=== PATIENT | male | born 1980 | race African-American/Black ===

== ENCOUNTER 2021-05-12 00:33 | Emergency (ER) | payer SELFPAY ==
[2021-05-12 00:48] VITALS: BP 146/88; PULSE 96; TEMP 97.9; BMI 25.4
[2021-05-12] MEDS ORDERED: IBUPROFEN 400 MG TABLET (FP) PO ONE (00:51)
[2021-05-12] MEDS ORDERED: ACETAMINOPHEN 325 MG TABLET (FP) PO ONE (00:51)
== END 2021-05-12 01:09 | disposition home or self-care (01) ==
LOC: JER 00:33
DX: U07.1 COVID-19 (principal)
CPT/HCPCS: 87804; 99283-25; C9803; U0003; U0005